=== PATIENT | female | born 1995 | race Caucasian/White ===

== ENCOUNTER 2020-07-10 15:45 | Inpatient (IN) ==
[2020-07-10 17:32] LABS: Estimated Average Glucose 111 mg/dl; Hemoglobin A1C 5.5 %
[2020-07-10] MEDS ORDERED: traZODone 50 MG TABLET PO PRN (18:35)
[2020-07-10] MEDS ORDERED: Ibuprofen 400 MG TABLET PO PRN (18:35)
[2020-07-10] MEDS ORDERED: *HR* LORazepam 1 MG TABLET PO PRN (18:35)
[2020-07-10] MEDS ORDERED: *HR* LORazepam 2 MG/ML VIAL IM PRN (18:35)
[2020-07-10] MEDS ORDERED: MOM Conc 10 ML UD.LIQ PO PRN (18:35)
[2020-07-10] MEDS ORDERED: Haloperidol Lactate 5 MG/ML VIAL IM PRN (18:35)
[2020-07-10] MEDS ORDERED: haloperidoL 5 MG TABLET PO PRN (18:35)
[2020-07-10] MEDS ORDERED: Mag Hydrox/Al Hydrox/Simeth 30 ML UDC PO PRN (18:35)
[2020-07-11] MEDS ORDERED: Nicotine 21 MG PATCH.TD24 TD SCH (09:00)
[2020-07-11] MEDS: hydrOXYzine pamoate 25 MG CAPSULE PO PRN ×2 (10:16→21:05)
[2020-07-11] MEDS: Nicotine 2 MG GUM BC PRN (17:43)
[2020-07-11] MEDS: traZODone 50 MG TABLET PO SCH (21:05)
[2020-07-12] MEDS: Nicotine 2 MG GUM BC PRN ×2 (09:50→17:33)
[2020-07-12] MEDS ORDERED: Topiramate 25 MG TABLET PO SCH (19:15)
[2020-07-12] MEDS: traZODone 50 MG TABLET PO SCH (20:22)
[2020-07-13 10:00] VITALS: BP 101/68
== END 2020-07-13 10:40 | disposition home or self-care (01) | DRG 751 ==
LOC: EMEROOARM 15:45 → SUATTDRO 18:28 → 1ANU 18:28
PROVIDERS: ADMIT Psychiatry & Neurology Psychiatry; ATTEND Psychiatry & Neurology Psychiatry